=== PATIENT | female | born 1995 | race Caucasian/White ===

== ENCOUNTER 2017-12-16 18:00 | Observation (INO) | payer OTHER ==
[2017-12-16 18:22] LABS: PH,URINE 5.5 (4.5-8); URINE APPEARANCE Clear; URINE BILIRUBIN 1+ (NEGATIVE); URINE BLOOD Negative (NEGATIVE); URINE GLUCOSE (UA) Negative (NEGATIVE); URINE KETONE 1+ (NEGATIVE); URINE LEUK ESTERASE Negative (NEGATIVE); URINE NITRITE Negative (NEGATIVE); URINE PROTEIN Negative (NEGATIVE); URINE UROBILINOGEN 0.2 (0.2-1.0)
[2017-12-16 18:24] LABS: HCG,QUALITATIVE URINE NEGATIVE; URINE COLOR YELLOW
--- NOTE | 2017-12-16 19:18 | PDOC ---
History of Present Illness - General History Source: Patient Exam Limitations: No Limitations - History of Present Illness Initial Comments: 12/16/17 20:08 The patient is a 22 year old female, with a significant past medical history of chronic abdominal pain, delayed gastric emptying, and esophagitis, who presents to the emergency department with, 2 days of abdominal pain. She describes her pain currently as steady, dull, and nonradiating. As per patient, her symptoms began as diffuse until 12 hours ago. Secondary to her symptoms, she reports nausea, one episode of emesis and diarrhea. She describes her diarrhea as multiple episodes without mucus or blood. She reports to have had an upper endoscopy in the past. She denies ever having a colonoscopy. She denies recent fevers, chills, headache or dizziness. She denies recent constipation. She denies recent dysuria, frequency, urgency or hematuria. She denies recent chest pain or shortness of breath. Allergies: NKA Past surgical history: Endoscopy. Social history: Nonsmoker. Denies EtOH use and recreational drug use. Primary Care Physician: Dr. Tasneem Guerrero <Joaquin Orantes - Last Filed: 12/16/17 20:44> <Paola Vargas - Last Filed: 12/21/17 01:47> - General Chief Complaint: Pain Stated Complaint: RIGHT ABDOMINAL PAIN Time Seen by Provider: 12/16/17 19:17 Past History <Joaquin Orantes - Last Filed: 12/16/17 20:44> - Past Medical History COPD: No GI Disorders: Yes (DELAYED GASTRIC EMPTYING) Psychiatric Problems: Yes - Reproductive History Is Patient Now?: No - Suicide/Smoking/Psychosocial Hx Smoking History: Never smoked Hx Alcohol Use: Yes (OCCASIONAL) Drug/Substance Use Hx: No Substance Use Type: None <Paola Vargas - Last Filed: 12/21/17 01:47> - Past Medical History Allergies/Adverse Reactions: Allergies Allergy/AdvReac Type Severity Reaction Status Date / Time No Known Allergies Allergy Verified 12/16/17 18:11 Home Medications: Ambulatory Orders Estradiol Cypionate [Depo-Estradiol] 5 mg IM ASDIR 12/16/17 Ibuprofen [Advil -] 400 mg PO TID PRN 12/16/17 Melatonin 10 mg PO HS PRN 12/16/17 Sertraline HCl [Zoloft] 200 mg PO DAILY 12/16/17 Acetaminophen [Tylenol .Regular Strength -] 650 mg PO Q6H #100 tablet 12/17/17 Oxycodone HCl/Acetaminophen [Percocet 5/325 -] 1 - 2 tab PO Q6H 4 Days #30 tab MDD 6 12/17/17 Review of Systems - Review of Systems Able to Perform ROS?: Yes Comments:: 12/16/17 20:08 CONSTITUTIONAL: Absent: fever, no chills, no fatigue EYES: Absent: visual changes ENT: Absent: ear pain, no sore throat CARDIOVASCULAR: Absent: chest pain, no palpitations RESPIRATORY: Absent: cough, no SOB GI: Present: Abdominal pain, nausea, emesis, diarrhea. Absent: no constipation GENITOURINARY: Absent: dysuria, no frequency, no hematuria MUSKULOSKELETAL: Absent: back pain, no arthralgia, no myalgia SKIN: Absent: rash NEURO: Absent: headache All Other Systems: Reviewed and Negative <Joaquin Orantes - Last Filed: 12/16/17 20:44> *Physical Exam - Vital Signs Last Vital Signs Temp Pulse Resp BP Pulse Ox 98.2 F 94 H 16 113/67 97 12/16/17 18:10 12/16/17 18:10 12/16/17 18:10 12/16/17 18:10 12/16/17 18:10 - Physical Exam Comments: 12/16/17 20:08 GENERAL: The patient is awake, alert, and fully oriented, in no acute distress. HEAD: Normal with no signs of trauma. EYES: Pupils equal, round and reactive to light, extraocular movements intact, sclera anicteric, conjunctiva clear with no pallor. (+)ENT: Dry mucous membranes. Ears normal, nares patent, oropharynx clear without exudates. NECK: Normal range of motion, supple without lymphadenopathy, JVD, or masses. LUNGS: Breath sounds equal, clear to auscultation bilaterally. No wheeze/ crackles. HEART: Regular rate and rhythm, normal S1 and S2 without murmur or rub. (+)ABDOMEN: Moderate right lower quadrant tenderness with involuntary guarding and mild rebound. Soft/nondistended. BS wnl. No palpable masses. No hepatosplenomegaly. EXTREMITIES: Normal range of motion, no edema. No clubbing or cyanosis. No cords, erythema, or tenderness. NEUROLOGICAL: Cranial nerves II through XII grossly intact. Normal speech, normal gait. PSYCH: Normal mood, normal affect. SKIN: Warm, Dry, normal turgor, no rashes or lesions noted. <Joaquin Orantes - Last Filed: 12/16/17 20:44> - Vital Signs Last Vital Signs Temp Pulse Resp BP Pulse Ox 98.2 F 94 H 16 113/67 97 12/16/17 18:10 12/16/17 18:10 12/16/17 18:10 12/16/17 18:10 12/16/17 18:10 <Paola Vargas - Last Filed: 12/21/17 01:47> ED Treatment Course - LABORATORY CBC & Chemistry Diagram: 12/16/17 19:47 12/16/17 19:47 - ADDITIONAL ORDERS Additional order review: Laboratory Results 12/16/17 18:15 Urine Color Yellow Urine Appearance Clear Urine pH 5.5 Ur Specific [place] >= 1.030 H Urine Protein Negative Urine Glucose (UA) Negative Urine Ketones 1+ H Urine Blood Negative Urine Nitrite Negative Urine Bilirubin 1+ H Urine Urobilinogen 0.2 Ur Leukocyte Esterase Negative Urine HCG, Qual Negative 12/16/17 19:47 RBC 4.04 MCV 91.2 MCHC 35.3 RDW 12.9 MPV 8.1 Neutrophils % 63.6 Lymphocytes % 26.3 Monocytes % 8.7 Eosinophils % 1.0 Basophils % 0.4 - Medications Given in the ED: ED Medications Discontinued Medications Generic Name Dose Route Start Last Admin Trade Name Isaak PRN Reason Stop Dose Admin Ketorolac Tromethamine 30 mg 12/16/17 19:41 12/16/17 19:55 Toradol Injection - IVPUSH 12/16/17 19:42 30 mg ONCE ONE Administration <Joaquin Orantes - Last Filed: 12/16/17 20:44> - LABORATORY CBC & Chemistry Diagram: 12/17/17 07:22 12/17/17 07:22 - ADDITIONAL ORDERS Additional order review: Laboratory Results 12/16/17 18:15 Urine Color Yellow Urine Appearance Clear Urine pH 5.5 Ur Specific [place] >= 1.030 H Urine Protein Negative Urine Glucose (UA) Negative Urine Ketones 1+ H Urine Blood Negative Urine Nitrite Negative Urine Bilirubin 1+ H Urine Urobilinogen 0.2 Ur Leukocyte Esterase Negative Urine HCG, Qual Negative <Paola Vargas - Last Filed: 12/21/17 01:47> Progress Note - Progress Note Progress Note: Documentation has been prepared under my direction and personally reviewed by me in its entirety. I attest that this documented accurately reflects all work, treatment, procedures and medical decision making performed by me. <Paola Vargas - Last Filed: 12/21/17 01:47> Medical Decision Making - Medical Decision Making 12/17/17 00:11 Laboratory evaluation is essentially normal. Abd/pelv CT interpreted by Imaging data collection specialist: retrocecal appendix dilated to 10mm with no contrast within lumen. Mild inflammation of appendix is present. no abscess or free air. No other significant findings Workup consistent with acute appendicitis Results discussed with patient and her mother. Zosyn 3.375g IV ordered Case discussed with Dr Gallo who is covering General Surgery tonight. [facility] Mak with [facility] consult <Paola Vargas - Last Filed: 12/21/17 01:47> *DC/Admit/Observation/Transfer - Attestations Scribe Attestion: 12/16/17 20:08 Documentation prepared by Joaquin Orantes, acting as paramedical aide for Paola Vargas MD. <Joaquin Orantes - Last Filed: 12/16/17 20:44> - Discharge Dispostion Admit: Yes <Paola Vargas - Last Filed: 12/21/17 01:47> Diagnosis at time of Disposition: Acute appendicitis Qualifiers: Acute appendicitis type: with localized peritonitis Qualified Code(s): K35.3 - Acute appendicitis with localized peritonitis - Discharge Dispostion Disposition: HOME Condition at time of disposition: Improved
[2017-12-16] MEDS ORDERED: KETOROLAC TROMETHAMINE 30 MG/1 ML VIAL IVPUSH ONE (19:41)
[2017-12-16] MEDS ORDERED: SODIUM CHLORIDE 1,000 ML IV STA (19:41)
[2017-12-16] MEDS ORDERED: KETOROLAC TROMETHAMINE 30 MG/1 ML VIAL ONE (19:50)
[2017-12-16 19:57] LABS: BASO % 0.4 % (0-2.0); HEMATOCRIT 36.8 % (32.4-45.2); LYMPH % 26.3 % (8-40); MCH 32.2 pg (25.7-33.7); MCHC 35.3 g/dl (32.0-36.0); MEAN CELL VOLUME 91.2 fl (80-96); MEAN PLT VOLUME 8.1 fl (7.5-11.1); MONO % 8.7 % (3.8-10.2); NEUT % 63.6 % (42.8-82.8); PLATELET COUNT 232 K/MM3 (134-434); RBC 4.04 M/mm3 (3.60-5.2); RDW 12.9 % (11.6-15.6); WHITE BLOOD COUNT 6.5 K/mm3 (4.0-10.8)
[2017-12-16 20:07] LABS: INR 1.26 (0.82-1.09)
[2017-12-16 20:11] LABS: ALBUMIN 4.2 g/dl (3.5-5.0); ALK PHOS 38 U/L (32-92); ANION GAP 8 (8-16); BLOOD UREA NITROGEN 12 mg/dl (7-18); CALCIUM 8.7 mg/dl (8.4-10.2); CHLORIDE 103 mmol/L (98-107); CO2 25 mmol/L (22-28); GLUCOSE,RANDOM 80 mg/dl (74-106); POTASSIUM 3.6 mmol/L (3.5-5.1); SGOT/AST 17 U/L (10-42); SGPT/ALT 18 U/L (10-40); SODIUM 136 mmol/L (136-145); TOT PROT 6.8 g/dl (6.4-8.3)
[2017-12-16 20:19] LABS: CREATININE < 0.8 mg/dl (0.6-1.3)
[2017-12-16] MEDS ORDERED: PIPERACIL/TAZOB 3.375 GM 3.375 GM/50 ML PREMIX IVPB ONE (23:49)
[2017-12-16] MEDS ORDERED: PIPERACILLIN/TAZOBACTAM 3.375 GM VIAL IVPB ONE (23:59)
[2017-12-17] MEDS ORDERED: PIPERACIL/TAZOB 3.375 GM 3.375 GM/50 ML PREMIX IVPB ONE (00:14)
[2017-12-17] MEDS ORDERED: morphine CARPU-JECT 2 MG/1 ML DISP.SYRIN IVPUSH PRN (01:03)
[2017-12-17] MEDS ORDERED: ACETAMINOPHEN 1000 MG/100 ML VIAL (NON FORMULARY) IVPB PRN (01:09)
[2017-12-17] MEDS ORDERED: SODIUM CHLORIDE 1,000 ML IV SCH (01:15)
--- NOTE | 2017-12-17 01:55 | CONSULT ---
Consult Consult Specialty:: general surgery Referred by:: dr. baker Reason for Consultation:: acute appendicitis - History of Present Illness Chief Complaint: abdominal pain History of Present Illness: 22yo female with PMH chronic abdominal pain, esophagitis, delayed gastric emptying, and esophagitis presents with 2 days of severe abdominal pain. The pain is focal to the Right lower quadrant. She describes her pain currently as steady, dull, and non-radiating. As per patient, her symptoms began as diffuse until 12 hours ago. Secondary to her symptoms, she reports nausea, one episode of emesis and diarrhea. She denies fever and chills. She describes her diarrhea as multiple episodes without mucus or blood. She reports to have had an upper endoscopy in the past. She has not had previous abdominal surgery. We were asked to assess. - History Source History Provided By: Patient, Medical Record Limitations to Obtaining History: No Limitations - Past Medical History Gastrointestinal: Yes: Irritable Bowel Disease, Other (delayed gastirc emptying ) ...: No - Alcohol/Substance Use Hx Alcohol Use: Yes (OCCASIONAL) - Smoking History Smoking history: Never smoked Home Medications - Allergies Allergies/Adverse Reactions: Allergies Allergy/AdvReac Type Severity Reaction Status Date / Time No Known Allergies Allergy Verified 12/16/17 18:11 - Home Medications Home Medications: Ambulatory Orders Estradiol Cypionate [Depo-Estradiol] 5 mg IM ASDIR 12/16/17 Ibuprofen [Advil -] 400 mg PO TID PRN 12/16/17 Melatonin 10 mg PO HS PRN 12/16/17 Sertraline HCl [Zoloft] 200 mg PO DAILY 12/16/17 Review of Systems - Review of Systems Constitutional: denies: Chills, Fever Eyes: denies: Blind Spots, Recent Change in Vision HENT: denies: Difficult Swallowing, Throat Pain Cardiovascular: denies: Chest Pain, Palpitations Respiratory: denies: Cough, SOB Gastrointestinal: reports: Abdominal Pain, Constipation, Diarrhea, Indigestion Genitourinary: denies: Discharge, Dysuria Breasts: reports: No Symptoms Reported. denies: Pain Musculoskeletal: denies: Muscle Pain, Muscle Weakness Integumentary: denies: Lesions, Rash Neurological: denies: Seizure, Syncope Endocrine: denies: Unexplained Weight Gain, Unexplained Weight Loss Hematology/Lymphatic: denies: Easily Bruised, Excessive Bleeding Psychiatric: denies: Anxiety, Depression Physical Exam Vital Signs: Vital Signs Temperature 98.2 F 12/16/17 18:10 Pulse Rate 94 H 12/16/17 18:10 Respiratory Rate 16 12/16/17 18:10 Blood Pressure 113/67 12/16/17 18:10 O2 Sat by Pulse Oximetry (%) 97 12/16/17 18:10 Vital Signs Period Temp Pulse Resp BP Sys/Farias Pulse Ox Last 24 Hr 98.2 F-98.8 F 68-94 16-18 105-116/67-78 97-99 Constitutional: Yes: Well Nourished, No Distress, Calm Eyes: Yes: Conjunctiva Clear, EOM Intact HENT: Yes: Atraumatic, Normocephalic Neck: Yes: Supple, Trachea Midline Cardiovascular: Yes: Regular Rate and Rhythm, S1, S2 Respiratory: Yes: Regular, CTA Bilaterally Gastrointestinal: Yes: Normal Bowel Sounds, Soft, Tenderness (RLQ), Tenderness, Rebound. No: Palpable Mass, Pulsatile Mass, Tenderness, Epigastrium ...Rectal Exam: Yes: Sphincter Tone Normal. No: Hemorrhoids/External, Inflammation, Mass Renal/: No: CVA Tenderness - Left, CVA Tenderness - Right Musculoskeletal: No: Muscle Pain, Muscle Weakness Extremities: No: Cool, Cyanosis Edema: No Peripheral Pulses WNL: Yes Neurological: Yes: Alert, Oriented Psychiatric: Yes: Alert, Oriented Labs: CBC, BMP 12/16/17 19:47 12/16/17 19:47 Imaging - Results Cat Scan: Report Reviewed, Image Reviewed (inflamed appendix RLQ) Problem List - Problems (1) Acute appendicitis Assessment/Plan: 22 yo female with MMP with acute appendicitis NPO and IVF hydration IV antibiotics ID consult adequate analgesia Discussed with patient risks, benefits and alternatives of laparoscopic possible open appendectomy, including but not limited to bleeding, infection, injury to adjacent structures, leak or injury, intraabdominal abscess, need for further procedures, ; alternatives include antibiotics, delayed or no surgery - risks of this include failure of nonoperative therapy, perforation, sepsis, recurrence, . Patient desires to proceed with operation - will take to OR for above. Informed consent signed for the same. Code(s): K35.80 - UNSPECIFIED ACUTE APPENDICITIS Qualifiers: Acute appendicitis type: with localized peritonitis Qualified Code(s): K35.3 - Acute appendicitis with localized peritonitis (2) Delayed gastric emptying Code(s): K30 - FUNCTIONAL DYSPEPSIA (3) Chronic abdominal pain Code(s): R10.9 - UNSPECIFIED ABDOMINAL PAIN; G89.29 - OTHER CHRONIC PAIN (4) Esophagitis Code(s): K20.9 - ESOPHAGITIS, UNSPECIFIED
[2017-12-17 04:25] VITALS: BMI 22.4
[2017-12-17 07:51] LABS: BASO % 0.4 % (0-2.0); EOS % 1.5 % (0-4.5); HEMOGLOBIN 12.6 GM/dl (10.7-15.3); MCH 31.4 pg (25.7-33.7); MCHC 34.2 g/dl (32.0-36.0); MEAN CELL VOLUME 91.8 fl (80-96); MEAN PLT VOLUME 8.7 fl (7.5-11.1); MONO % 6.9 % (3.8-10.2); NEUT % 64.2 % (42.8-82.8); PLATELET COUNT 224 K/MM3 (134-434); RBC 4.02 M/mm3 (3.60-5.2); RDW 12.9 % (11.6-15.6); WHITE BLOOD COUNT 6.2 K/mm3 (4.0-10.8)
[2017-12-17] MEDS ORDERED: ONDANSETRON 4 MG/2 ML VIAL IVPB PRN ×2 (07:57→14:17)
[2017-12-17 08:05] LABS: ANION GAP 9 (8-16); BLOOD UREA NITROGEN 11 mg/dl (7-18); CALCIUM 8.3 mg/dl (8.4-10.2); CHLORIDE 108 mmol/L (98-107); CO2 20 mmol/L (22-28); GLUCOSE,RANDOM 62 mg/dl (74-106); MAGNESIUM 1.6 mg/dL (1.8-2.4); PHOSPHOROUS 3.1 mg/dl (2.5-4.6); POTASSIUM 3.6 mmol/L (3.5-5.1); SODIUM 137 mmol/L (136-145)
[2017-12-17] MEDS ORDERED: PIPERACILLIN/TAZOB 3.375 GM/50 ML PRE-DOCKED IVPB ONE (08:15)
--- NOTE | 2017-12-17 08:20 | HP ---
CHIEF COMPLAINT: abdominal pain and nausea PCP: Dr Guerrero HISTORY OF PRESENT ILLNESS: Patient is a 22 y/o female with a past medical history of incomplete gastric emptying. Patient reports with pain to the right lower quadrant since Sunday , December 15, 2017, Patient reports one episode of vomiting yesterday, patient denies any tactile fever. 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 Smoking:none Alcohol:none Drugs: none Family History: non contributory to this admission Allergies No Known Allergies Allergy (Verified 12/16/17 18:11) HOME MEDICATIONS: Home Medications Medication Instructions Recorded Estradiol Cypionate 5 mg IM ASDIR 12/16/17 [Depo-Estradiol] Ibuprofen [Advil -] 400 mg PO TID PRN 12/16/17 Melatonin 10 mg PO HS PRN 12/16/17 Sertraline HCl [Zoloft] 200 mg PO DAILY 12/16/17 REVIEW OF SYSTEMS CONSTITUTIONAL: Absent: fever, chills, diaphoresis, generalized weakness, malaise, loss of appetite, weight change HEENT: Absent: rhinorrhea, nasal congestion, throat pain, throat swelling, difficulty swallowing, mouth swelling, ear pain, eye pain, visual changes CARDIOVASCULAR: Absent: chest pain, syncope, palpitations, irregular heart rate, lightheadedness , peripheral edema RESPIRATORY: Absent: cough, shortness of breath, dyspnea with exertion, orthopnea, wheezing, stridor, hemoptysis GASTROINTESTINAL: Present: abdominal pain Absent: abdominal distension, nausea, vomiting, diarrhea, constipation, melena , hematochezia GENITOURINARY: Absent: dysuria, frequency, urgency, hesitancy, hematuria, flank pain, genital pain MUSCULOSKELETAL: Absent: myalgia, arthralgia, joint swelling, back pain, neck pain SKIN: Absent: rash, itching, pallor HEMATOLOGIC/IMMUNOLOGIC: Absent: easy bleeding, easy bruising, lymphadenopathy, frequent infections ENDOCRINE: Absent: unexplained weight gain, unexplained weight loss, heat intolerance, cold intolerance NEUROLOGIC: Absent: headache, focal weakness or paresthesias, dizziness, unsteady gait, seizure, mental status changes, bladder or bowel incontinence PSYCHIATRIC: Absent: anxiety, depression, suicidal or homicidal ideation, hallucinations. PHYSICAL EXAMINATION Vital Signs - 24 hr 12/16/17 12/17/17 12/17/17 18:10 04:07 06:00 Temperature 98.2 F 98.6 F 98.8 F Pulse Rate 94 H 68 80 Respiratory 16 18 18 Rate Blood Pressure 113/67 105/78 116/76 O2 Sat by Pulse 97 99 Oximetry (%) 12/17/17 08:16 Temperature Pulse Rate Respiratory 16 Rate Blood Pressure O2 Sat by Pulse 100 Oximetry (%) GENERAL: Awake, alert, and fully oriented, in no acute distress. HEAD: Normal with no signs of trauma. EYES: Pupils equal, round and reactive to light, extraocular movements intact, sclera anicteric, conjunctiva clear. No lid lag. EARS, NOSE, THROAT: Ears normal, nares patent, oropharynx clear without exudates. Moist mucous membranes. NECK: Normal range of motion, supple without lymphadenopathy, JVD, or masses. LUNGS: Breath sounds equal, clear to auscultation bilaterally. No wheezes, and no crackles. No accessory muscle use. HEART: Regular rate and rhythm, normal S1 and S2 without murmur, rub or gallop. ABDOMEN: Soft, + psosas, + obtruator, + McBurney's tenderness, not distended, normoactive bowel sounds, no guarding, no rebound, no masses. No hepatomegaly or splenomegaly. MUSCULOSKELETAL: Normal range of motion at all joints. No bony deformities or tenderness. No CVA tenderness. UPPER EXTREMITIES: 2+ pulses, warm, well-perfused. No cyanosis. No clubbing. No peripheral edema. LOWER EXTREMITIES: 2+ pulses, warm, well-perfused. No calf tenderness. No peripheral edema. NEUROLOGICAL: Cranial nerves II-XII intact. Normal speech. Normal gait. PSYCHIATRIC: Cooperative. Good eye contact. Appropriate mood and affect. SKIN: Warm, dry, normal turgor, no rashes or lesions noted, normal capillary refill. Laboratory Results - last 24 hr 12/16/17 12/16/17 12/16/17 18:15 19:47 19:47 WBC 6.5 RBC 4.04 Hgb 13.0 Hct 36.8 MCV 91.2 MCH 32.2 MCHC 35.3 RDW 12.9 Plt Count 232 MPV 8.1 Neutrophils % 63.6 Lymphocytes % 26.3 Monocytes % 8.7 Eosinophils % 1.0 Basophils % 0.4 PT with INR INR Sodium 136 Potassium 3.6 Chloride 103 Carbon Dioxide 25 Anion Gap 8 BUN 12 Creatinine < 0.8 Creat Clearance w eGFR > 60 Random Glucose 80 Calcium 8.7 Total Bilirubin 1.0 AST 17 ALT 18 Alkaline Phosphatase 38 Total Protein 6.8 Albumin 4.2 Urine Color Yellow Urine Appearance Clear Urine pH 5.5 Ur Specific [place] >= 1.030 H Urine Protein Negative Urine Glucose (UA) Negative Urine Ketones 1+ H Urine Blood Negative Urine Nitrite Negative Urine Bilirubin 1+ H Urine Urobilinogen 0.2 Ur Leukocyte Esterase Negative Urine HCG, Qual Negative 12/16/17 12/17/17 19:47 07:22 WBC 6.2 RBC 4.02 Hgb 12.6 Hct 37.0 MCV 91.8 MCH 31.4 MCHC 34.2 RDW 12.9 Plt Count 224 MPV 8.7 Neutrophils % 64.2 Lymphocytes % 27.0 Monocytes % 6.9 Eosinophils % 1.5 Basophils % 0.4 PT with INR 14.0 H INR 1.26 H Sodium Potassium Chloride Carbon Dioxide Anion Gap BUN Creatinine Creat Clearance w eGFR Random Glucose Calcium Total Bilirubin AST ALT Alkaline Phosphatase Total Protein Albumin Urine Color Urine Appearance Urine pH Ur Specific [place] Urine Protein Urine Glucose (UA) Urine Ketones Urine Blood Urine Nitrite Urine Bilirubin Urine Urobilinogen Ur Leukocyte Esterase Urine HCG, Qual CMP Sodium 137 mmol/L (136-145) 12/17/17 07:22 Potassium 3.6 mmol/L (3.5-5.1) 12/17/17 07:22 Chloride 108 mmol/L (98-107) H 12/17/17 07:22 Carbon Dioxide 20 mmol/L (22-28) L 12/17/17 07:22 Anion Gap 9 (8-16) 12/17/17 07:22 BUN 11 mg/dl (7-18) 12/17/17 07:22 Creatinine 0.7 mg/dl (0.6-1.3) 12/17/17 07:22 Creat Clearance w eGFR > 60 (>60) 12/16/17 19:47 Random Glucose 62 mg/dl (74-106) L D 12/17/17 07:22 Calcium 8.3 mg/dl (8.4-10.2) L 12/17/17 07:22 Phosphorus 3.1 mg/dl (2.5-4.6) 12/17/17 07:22 Magnesium 1.6 mg/dL (1.8-2.4) L 12/17/17 07:22 Total Bilirubin 1.0 mg/dl (0.2-1.0) 12/16/17 19:47 AST 17 U/L (10-42) 12/16/17 19:47 ALT 18 U/L (10-40) 12/16/17 19:47 Alkaline Phosphatase 38 U/L (32-92) 12/16/17 19:47 Total Protein 6.8 g/dl (6.4-8.3) 12/16/17 19:47 Albumin 4.2 g/dl (3.5-5.0) 12/16/17 19:47 ASSESSMENT/PLAN: 1) acute appendicitis - patient is pending OR today with Dr Arias - continue zosyn 3.375 - npo continue ivf 2) GI GERD delayed gastric emptying - continue protonix f/e/n - npo-->d5ns W/20meq KCI @83ml/hr - replete magnesium ppx - protonix - scd-->hold AC secondary to pending OR patient is medically optimized for surgery dispo: pt requies inpatient admission Visit type - Emergency Visit Emergency Visit: Yes ED Registration Date: 12/17/17 Care time: The patient presented to the Emergency Department on the above date and was hospitalized for further evaluation of their emergent condition. - New Patient This patient is new to me today: Yes Date on this admission: 12/18/17 - Critical Care Critical Care patient: No Hospitalist Screening - Colonoscopy Questionnaire Colonoscopy Questionnaire: Colonoscopy Questionnaire - Patient: 50 - 75 years old and never had a screening colonoscopy: No History of colon or rectal polyps, or CA: No History of IBD, Crohn's disease or UC: No History of abdominal radiation therapy as a child: No - Relative: 1 with colon or rectal CA, or polyps at age 60 or younger: No Colon or rectal CA diagnosed at age 45 or younger: No Multiple relatives with colon or rectal CA: No - Outcome: Screening Result: Negative Screen
[2017-12-17 08:23] LABS: CREATININE 0.7 mg/dl (0.6-1.3)
[2017-12-17] MEDS ORDERED: MAGNESIUM SULF 50% (8.12 MEQ/2 ML-1 GM VIAL) IVPB ONE (08:38)
[2017-12-17] MEDS ORDERED: MAGNESIUM 1GM/D5W - 1 GM/100 ML IVPB IVPB ONE (09:00)
[2017-12-17] MEDS ORDERED: DEXTROSE 5%-NORMAL SALINE 1,000 ML IV SCH (09:15)
[2017-12-17] MEDS ORDERED: D5-NS + 20 MEQ KCL - 20 MEQ/1,000 ML INFUS.BAG IV SCH (09:30)
[2017-12-17] MEDS ORDERED: PATIENT'S OWN MEDICATION (NON-FORMULARY) (Sertraline Hcl [Zoloft] 200 MG) PO SCH (10:00)
[2017-12-17] MEDS ORDERED: PANTOPRAZOLE SODIUM 40 MG VIAL IVPUSH SCH (10:00)
[2017-12-17] MEDS ORDERED: LACTATED RINGERS SOLUTION 1,000 ML/1,000 ML INFUS.BAG IV SCH ×2 (11:30→14:17)
[2017-12-17] MEDS ORDERED: MIDAZOLAM HCL 2 MG/2 ML SINGLE DOSE VIAL ONE (12:33)
[2017-12-17] MEDS ORDERED: fentaNYL CITRATE 250 MCG/5 ML VIAL ONE (12:33)
[2017-12-17] MEDS ORDERED: PROPOFOL 20 ML ONE ×2 (12:33→13:15)
[2017-12-17] MEDS ORDERED: SUCCINYLCHOLINE CHLORIDE 200 MG/10 ML VIAL ONE (12:33)
[2017-12-17] MEDS ORDERED: ROCURONIUM BROMIDE 50 MG/5 ML VIAL ONE (13:05)
[2017-12-17] MEDS ORDERED: BUPIVACAINE HCL/PF 0.5% (5MG/ML) 10 ML VIAL ONE (13:11)
[2017-12-17] MEDS ORDERED: DEXAMETHASONE SOD PHOSPHATE 4 MG/1 ML VIAL ONE (13:28)
[2017-12-17] MEDS ORDERED: LACTATED RINGERS SOLUTION 1,000 ML IV SCH (13:30)
[2017-12-17] MEDS ORDERED: ONDANSETRON 4 MG/2 ML VIAL IVPUSH PRN (13:30)
[2017-12-17] MEDS ORDERED: BUPIVACAINE HCL/PF 0.5% (5MG/ML) 10 ML VIAL IJ ONE (13:31)
[2017-12-17] MEDS ORDERED: NEOSTIGMINE METHYLSULFATE 0.5 MG/ML - 10 ML MDV ONE (13:38)
[2017-12-17] MEDS ORDERED: GLYCOPYRROLATE 0.2 MG/1 ML VIAL ONE (13:38)
--- NOTE | 2017-12-17 13:59 | OP ---
Operative Note - Note: Operative Date: 12/17/17 Pre-Operative Diagnosis: acute appendicitis Operation: Laparoscopic appendectomy Findings: inflammed appendix adherent to cecum Post-Operative Diagnosis: Same as Pre-op Surgeon: Bryant Arias Anesthesiologist/WINDSHIELD TECHNICIAN: Cadence Escalante Anesthesia: General, Local (0.5% marcaine) Specimens Removed: appendix Estimated Blood Loss (mls): 10 Drains, Volume Out (mls): 400 (carrillo (removed)) Fluid Volume Replaced (mls): 500 Operative Report Dictated: Yes
[2017-12-17] MEDS ORDERED: morphine SULFATE 4 MG/ML VIAL IVPUSH PRN (14:17)
[2017-12-17] MEDS: ACETAMINOPHEN 1000 MG/100 ML VIAL (NON FORMULARY) IVPB PRN ×2 (14:33→14:44)
--- NOTE | 2017-12-17 15:23 | DS ---
Physical Examination Vital Signs: Vital Signs Temperature 98.4 F 12/17/17 13:54 Pulse Rate 95 H 12/17/17 13:54 Respiratory Rate 18 12/17/17 13:54 Blood Pressure 125/69 12/17/17 13:54 O2 Sat by Pulse Oximetry (%) 100 12/17/17 13:54 Labs: CBC, BMP 12/17/17 07:22 12/17/17 07:22 Discharge Summary Reason For Visit: ACUTE APPENDICITIS Current Active Problems Acute appendicitis (Acute) Chronic abdominal pain (Acute) Delayed gastric emptying (Acute) Esophagitis (Acute) Condition: Improved - Instructions Diet, Activity, Other Instructions: Postoperative instructions: You had a laparoscopic appendectomy on 12/17/[address] Bryant Arias of [facility]. Activity: Resume your usual activities gradually, but no heavy exertion or lifting more than 10-15 pounds for 1 month. Remove dressings 48 hours after surgery; sticky tapes underneath will fall off by themselves. You may shower daily starting then, just pat the incision areas dry. Eat lightly at first, but advance to your usual diet as tolerated. Pain: For pain, you may use and alternate Tylenol (acetaminophen) and/or ibuprofen every 6 hours each as needed; this means that you can take one OR the other at 3-hour intervals. Do not take more than 4000mg of acetaminophen in a day. Take medications as prescribed or indicated on the labeling. Follow-up: Call Dr. Arias' office at [phone] to make your postop appointment (Sunday ~2 weeks after surgery). Clinic is held in the [facility] on the first floor of [facility]. Call the office if you have: * increasing pain not responsive to pain medication * fever of 101F or higher * vomiting * unusual or increasing bleeding or drainage from wounds * increasing redness or swelling at wound sites * inability to urinate Also, see your primary medical doctor within 1-2 weeks. Referrals: Tasneem Guerrero [Primary Care Provider] - Disposition: HOME - Home Medications Comprehensive Discharge Medication List: Ambulatory Orders Estradiol Cypionate [Depo-Estradiol] 5 mg IM ASDIR 12/16/17 Ibuprofen [Advil -] 400 mg PO TID PRN 12/16/17 Melatonin 10 mg PO HS PRN 12/16/17 Sertraline HCl [Zoloft] 200 mg PO DAILY 12/16/17 Acetaminophen [Tylenol .Regular Strength -] 650 mg PO Q6H #100 tablet 12/17/17
[2017-12-17] MEDS ORDERED: KETOROLAC TROMETHAMINE 30 MG/1 ML VIAL ONE (16:27)
[2017-12-17 17:55] VITALS: BP 129/78; PULSE 81; TEMP 98.6
--- NOTE | 2017-12-17 19:09 | OP ---
DATE OF OPERATION: 12/17/2017 PREOPERATIVE DIAGNOSIS: Acute appendicitis. POSTOPERATIVE DIAGNOSIS: Acute appendicitis. PROCEDURE: Laparoscopic appendectomy. ATTENDING SURGEON: Bryant Arias MD HAND PACKER/PACKAGER: No one. ANESTHESIOLOGIST: Cadence Escalante MD ANESTHESIA TYPE: General with local. Local consisted of 0.5% Marcaine as well as 10 mL given in area block fashion. ESTIMATED BLOOD LOSS: 10 mL INTRAVENOUS FLUID: 500 mL URINE OUTPUT: 400 mL SPECIMEN: Appendix and border of cecum. INDICATION: Patient is a 22-year-old female presenting with 2 days of abdominal pain, worsening, right lower quadrant, minimal leukocytosis, no qualitative fevers. CT showed inflamed, noncontrast-filling appendix. She was counseled regarding the need for a laparoscopic appendectomy, signed informed consent after she was explained the risks, benefits, and alternatives, and she was taken for the procedure. DESCRIPTION OF PROCEDURE: Patient was brought to the operating room and placed in the supine position on the operating table with the left arm tucked and the right arm extended at 90 degrees perpendicular to the body's axis. The bilateral lower extremities had SCDs placed, Venodynes. Patient was induced with general anesthesia by Anesthesia uneventfully, had an endotracheal tube placed. Once stable, the anterior abdominal wall was shaved, prepped, and draped into a standard surgical field. The lower abdomen was prepped, and a surgical incision was scribed in the infraumbilical position in the midline, at the suprapubic position just 2 fingerbreadths above the pubis, and at the anterior-superior iliac spine in the midclavicular line. We proceeded first with a standard Ja entry into the umbilicus. It was made with a 15-blade scalpel, deepened and widened through the subcutaneous tissue after a formal timeout was completed, identifying the site with all parties in agreement. We proceeded then with identifying the midline fascia. It was incised with cautery and scored, retracted superiorly, and a Ja 12-mm was inserted into the abdomen. A pneumoperitoneum was then established at 15 mmHg. With this done, under direct visualization, the suprapubic and left lower quadrant ports were inserted, 5-mm at each. We then proceeded to place the patient in a steep Trendelenburg position, airplaned towards the left to expose the villiform appendix. The inflamed appendix was identified, grasped, and retracted into the field and then dissected at its base at the termination of the haustral of the cecum. It appeared slightly adherent to the wall. A plane was developed between the mesoappendix and the appendix, and there was a stapler applied across the base of the appendix with a small amount of cecal wall to control its base. This was a blue load EndoGIA 60 -mm, which was applied across the base of the appendix and fired in 2 segments. We then proceeded with clearing the remainder of the mesoappendix, and a white load EndoGIA size 60-mm was fired across the mesoappendix. The appendix was then retrieved through the umbilical port with the camera re-sited to the left lower quadrant using an EndoCatch bag. It was retrieved without incident. The site was irrigated of a small amount of bloody effluent. The skin was then cleaned. Once the appendix was passed off the field, we then tied the Ja entry port using a [id number] 0 Vicryl to ablate the defect. The remaining trocar sites were removed under direct visualization, pneumoperitoneum relieved, and they were closed with 4-0 Monocryl in interrupted fashion. The umbilical Ja entry was closed in a running subcuticular fashion. Counts were correct. The patient returned to recovery in stable condition. MD ALEXANDRE Meredith/[id number] MTDD
--- NOTE | 2017-12-17 23:56 | EKG ---
Test Reason : Blood Pressure : / mmHG Vent. Rate : 101 BPM Atrial Rate : 101 BPM P-R Int : 158 ms QRS Dur : 082 ms QT Int : 362 ms P-R-T Axes : 022 017 027 degrees QTc Int : 469 ms SINUS TACHYCARDIA OTHERWISE NORMAL ECG NO PREVIOUS ECGS AVAILABLE Confirmed by SYDNEE FOLEY MD ([id number]) on 12/17/2017 11:55:55 PM Referred By: REANNA ALEJANDRO Confirmed By:SYDNEE FOLEY MD
[2017-12-18] MEDS ORDERED: PANTOPRAZOLE SODIUM 40 MG VIAL IVPUSH SCH (10:00)
--- NOTE | 2017-12-24 08:54 | PATH ---
Surgical Pathology Report Patient Name: MIMI PIEDRA Med. Rec. #: [id number] /Age/Gender: 1995 (Age: 22) / F Account: [id number] Location: [facility] Taken: 12/17/2017 Received: 12/20/2017 Reported: 12/24/2017 Physicians: Bryant Arias M.D. Specimen(s) Received APPENDIX Clinical History Acute appendicitis Final Diagnosis APPENDIX, APPENDECTOMY: ACUTE APPENDICITIS AND PERIAPPENDICITIS. Electronically Signed Ajith Duckworth M.D. Gross Description Received in formalin, labeled "appendix," is a 8 x 1.5 cm. in length vermiform appendix with a stapled margin of resection and moderate attached fat. The serosa is springer and focally hemorrhagic. Sectioning reveals springer focally hemorrhagic lumen. The wall of the appendix averages 0.2 cm. in thickness. Human Services Supervisor sections are submitted in one cassettes. LUIGI/12/20/2017 billy/12/20/2017
== END 2017-12-17 18:45 | disposition home or self-care (01) ==
LOC: FER 18:00 → FM/S 12-17 01:03 → UNDOADMOB 12-17 01:08 → INTOOBSV 12-17 01:08 → JSAMEDAYSX 12-17 11:29
PROVIDERS: ADMIT Internal Medicine; ATTEND Registered Nurse
PROC: 3E03329 Introduction of Other Anti-infective into Peripheral Vein, Percutaneous Approach (ICD-10-PCS; 2017-12-17)
PROC: 3E033GC Introduction of Other Therapeutic Substance into Peripheral Vein, Percutaneous Approach (ICD-10-PCS; 2017-12-17)
PROC: 3E0337Z Introduction of Electrolytic and Water Balance Substance into Peripheral Vein, Percutaneous Approach (ICD-10-PCS; 2017-12-17)
PROC: 0DTJ4ZZ Resection of Appendix, Percutaneous Endoscopic Approach (ICD-10-PCS; principal; 2017-12-17 15:30)
DX: K35.80 Unspecified acute appendicitis (principal); K20.9 Esophagitis, unspecified; K30 Functional dyspepsia; R10.9 Unspecified abdominal pain; G89.29 Other chronic pain
CPT/HCPCS: 36415; 74177-TC; 80048; 80053; 81003; 82962; 83735; 84100; 84703; 85025; 85610; 87086; 88304-TC; 93005; 94760; 99285-25; G0378; J0131; J7030